=== PATIENT | male | born 1945 | race Caucasian/White ===

== ENCOUNTER → 2021-06-06 | Outpatient (CLI) | payer MEDICARE, BC | LOC: EDBD 12:47 → KOH-I 12:47 | DX: M23.42 Loose body in knee, left knee (principal); M17.12 Unilateral primary osteoarthritis, left knee | CPT/HCPCS: 73700 ==

== ENCOUNTER → 2021-08-20 | Outpatient (CLI) | payer MEDICARE, BC ==
[~2021-08-20] MED LIST: VITAMIN B12 PO; VITAMIN D
[2021-08-20 14:32] LABS: HEMOGLOBIN 15.1 gm/dl (14.0-17.5); RED BLOOD COUNT 4.61 M/UL (4.20-5.50); WHITE BLOOD COUNT 7.8 K/UL (4.5-11.0)
[2021-08-20 14:44] LABS: BUN/CREATININE RATIO 21 (0-10)
== END ==
LOC: OPSV2 08-19 08:00 → EDSTATUS 12:30 → OPSV2 12:41
PROVIDERS: Orthopaedic Surgery
DX: Z01.818 Encounter for other preprocedural examination (principal); J98.11 Atelectasis
CPT/HCPCS: 36415; 71046; 80048; 85025; 93005

== ENCOUNTER → 2021-09-01 | Day surgery (SDC) | payer MEDICARE, BC ==
[~2021-09-01] MED LIST changes: +ADULT LOW DOSE81 MG PO; +ROXICODONE5 MG PO
== END | disposition home or self-care (01) ==
LOC: OR 05:20 → EDBD 07:30 → EDSTATUS 07:30 → OR 07:30
DX: M17.0 Bilateral primary osteoarthritis of knee (principal); M23.42 Loose body in knee, left knee; M76.9 Unspecified enthesopathy, lower limb, excluding foot; Z20.822 Contact with and (suspected) exposure to COVID-19; Z86.16 Personal history of COVID-19; Z72.89 Other problems related to lifestyle
CPT/HCPCS: 36415; 73560; 86850; 86900; 86901; 97161; 97166; C1776; J0171; J0690; J1100; J2001; J2405; J2704; J2795; J3370; J7050; J7120